=== PATIENT | male | born 1955 | race Caucasian/White ===

== ENCOUNTER 2016-07-09 09:45 | Inpatient (IN) | payer MEDICARE ==
[~2016-07-09] VITALS: Ht 177.8 cm; Wt 79.8 kg
[2016-07-09] MEDS ORDERED: ONDANSETRON 2MG/ML, 2ML IVPush ONE (11:30)
[2016-07-09] MEDS ORDERED: HYDROmorphone 1 MG/ML, 1ML IVPush PRN (11:30)
[2016-07-09] MEDS ORDERED: ONDANSETRON 2MG/ML, 2ML ONE (11:37)
[2016-07-09] MEDS ORDERED: HYDROmorphone 1 MG/ML, 1ML ONE (11:37)
[2016-07-09] MEDS ORDERED: SODIUM CHLORIDE FLUSH 10ML SYR IVF PRN (13:00)
[2016-07-09] MEDS ORDERED: OMNIPAQUE 350 MG/ML, 100ML BOTTLE ONE (13:00)
[2016-07-09 13:30] LABS: CYTOLOGY BODY FLUID RECD INTO PATHOLOGY; CYTOLOGY BODY FLUID SOURCE CEREBROSPINAL FLUID
[2016-07-09] MEDS ORDERED: PLEASE ENTER ALLERGIES MC SCH ×2 (13:30)
[2016-07-09] MEDS ORDERED: GADOBUTROL 7.5 MMOL/7.5 ML PFS ONE (13:50)
[2016-07-09 13:58] LABS: GLUCOSE, CSF 47 mg/dL (40-80)
[2016-07-09 14:06] LABS: ASPARTATE AMINO TRANSFERASE 8 U/L (15-37); BLOOD UREA NITROGEN 33 mg/dL (7-18)
[2016-07-09 14:16] LABS: HEMOGLOBIN 7.3 g/dL (13.7-18.0)
[2016-07-09 14:29] LABS: DIFF TOTAL CELLS COUNTED 100 CELL DIFF
[2016-07-09 14:34] LABS: ANISOCYTOSIS 1+; HYPOCHROMIA 1+; POIKILOCYTOSIS 1+; SPHEROCYTES 1+; VERIFY COUNTS? YES
[2016-07-09 15:31] VITALS: BP 117/73
[2016-07-09] MEDS ORDERED: HYDROcodone/APAP 10/325 MG TABLET PO PRN (18:30)
[2016-07-09] MEDS ORDERED: ONDANSETRON 2MG/ML, 2ML IVPush PRN (19:30)
[2016-07-09] MEDS ORDERED: LORazepam 1MG TABLET PO PRN (19:30)
[2016-07-09] MEDS ORDERED: PREZISTA 800 MG HOMEMEDPO SCH (21:00)
[2016-07-09] MEDS ORDERED: RITONAVIR 100 MG TABLET PO SCH (21:00)
[2016-07-09] MEDS ORDERED: EMTRICITABINE/TENOFOVIR 200 MG/300 MG TABLET PO SCH (21:00)
[2016-07-09 21:05] VITALS: BP 98/61
[2016-07-09] MEDS ORDERED: MORPHINE SULFATE 4 MG/ML, 1ML IVPush PRN (22:00)
[2016-07-10] VITALS (7 sets, daily range): BP systolic 96–112; BP diastolic 56–75
[2016-07-10] MEDS ORDERED: morphine SULFATE 10 MG/ML, 1ML IVPush PRN (03:00)
[2016-07-10] MEDS: MORPHINE SULFATE 4 MG/ML, 1ML IVPush PRN ×5 (03:00→19:20)
[2016-07-10 04:42] LABS: HEMOGLOBIN 6.4 g/dL (13.7-18.0)
[2016-07-10 04:45] LABS: BLOOD UREA NITROGEN 22 mg/dL (7-18)
[2016-07-10] MEDS ORDERED: DIPHENHYDRAMINE 50 MG/ML, 1ML IVPush PRN (05:30)
[2016-07-10] MEDS: ACYCLOVIR 400 MG TABLET PO SCH (07:49)
[2016-07-10] MEDS: PANTOPROZOLE 40MG TABLET PO SCH ×2 (07:49→17:20)
[2016-07-10] MEDS: HYDROcodone/APAP 10/325 MG TABLET PO PRN ×2 (09:28→22:59)
[2016-07-10] MEDS: FLUCONAZOLE 200 MG TABLET PO SCH (12:22)
[2016-07-10] MEDS: PREZISTA 800 MG HOMEMEDPO SCH (21:00)
[2016-07-10] MEDS: EMTRICITABINE/TENOFOVIR 200 MG/300 MG TABLET PO SCH (21:17)
[2016-07-10] MEDS: DEXAMETHASONE 4 MG/ML, 5ML IVPush PRN (21:17)
[2016-07-10] MEDS: RITONAVIR 100 MG TABLET PO SCH (21:17)
[2016-07-11] VITALS (13 sets, daily range): BP systolic 102–122; BP diastolic 62–85
[2016-07-11] MEDS: HYDROcodone/APAP 10/325 MG TABLET PO PRN ×3 (01:51→21:49)
[2016-07-11 04:47] LABS: HEMOGLOBIN 9.2 g/dL (13.7-18.0)
[2016-07-11 04:51] LABS: BLOOD UREA NITROGEN 20 mg/dL (7-18)
[2016-07-11] MEDS: MORPHINE SULFATE 4 MG/ML, 1ML IVPush PRN ×2 (04:54→15:10)
[2016-07-11] MEDS: DEXAMETHASONE 4 MG/ML, 5ML IVPush PRN (04:54)
[2016-07-11] MEDS ORDERED: METHYLNALTREXONE 12 MG/0.6 ML SQ ONE (07:30)
[2016-07-11] MEDS ORDERED: DEXAMETHASONE 4 MG/ML, 5ML IVPB SCH (08:00)
[2016-07-11] MEDS: PANTOPROZOLE 40MG TABLET PO SCH ×2 (09:06→17:59)
[2016-07-11] MEDS: ACYCLOVIR 400 MG TABLET PO SCH (09:07)
[2016-07-11] MEDS: FLUCONAZOLE 200 MG TABLET PO SCH (09:07)
[2016-07-11] MEDS: DEXAMETHASONE 40 MG in SODIUM CHLORIDE 0.9% 50 ML IV SCH (09:38)
[2016-07-11 10:04] LABS: HEMOGLOBIN 11.6 g/dL (13.7-18.0)
[2016-07-11 12:28] LABS: OCCBLD OBC PASS
[2016-07-11] MEDS ORDERED: HYDROmorphone 2MG TABLET PO PRN (15:30)
[2016-07-11] MEDS ORDERED: MORPHINE SULFATE 4 MG/ML, 1ML IVPush PRN (18:00)
[2016-07-11 19:12] LABS: HEMOGLOBIN 10.2 g/dL (13.7-18.0)
[2016-07-11] MEDS: EMTRICITABINE/TENOFOVIR 200 MG/300 MG TABLET PO SCH (20:39)
[2016-07-11] MEDS: RITONAVIR 100 MG TABLET PO SCH (20:39)
[2016-07-11] MEDS: PREZISTA 800 MG HOMEMEDPO SCH (20:44)
[2016-07-12] MEDS: HYDROcodone/APAP 10/325 MG TABLET PO PRN (01:40)
[2016-07-12 01:50] VITALS: BP 116/79
[2016-07-12 02:06] LABS: TOXOPLASMA GONDII IGG <3.0 IU/mL (0.0-7.1); TOXOPLASMA GONDII IGM <3.0 AU/mL (0.0-7.9)
[2016-07-12 04:47] LABS: HEMOGLOBIN 10.1 g/dL (13.7-18.0)
[2016-07-12 04:56] LABS: BLOOD UREA NITROGEN 24 mg/dL (7-18)
[2016-07-12 09:11] VITALS: BP 111/69
[2016-07-12] MEDS: PANTOPROZOLE 40MG TABLET PO SCH ×2 (09:24→17:00)
[2016-07-12] MEDS: ACYCLOVIR 400 MG TABLET PO SCH (09:25)
[2016-07-12] MEDS: FLUCONAZOLE 200 MG TABLET PO SCH (09:25)
[2016-07-12 10:07] LABS: BARTONELLA HENSELAE IGG Negative titer (Neg:<1:320); BARTONELLA HENSELAE IGM Negative titer (Neg:<1:100); BARTONELLA QUINTANA IGM Negative titer (Neg:<1:100)
[2016-07-12] MEDS: DEXAMETHASONE 40 MG in SODIUM CHLORIDE 0.9% 50 ML IV SCH (10:25)
[2016-07-12 12:06] LABS: CRYPTOCOCCUS ANTIGEN CSF Negative (Negative); MANDATED REFLEX TO CULTURE Not Indicated (.)
[2016-07-12 15:54] VITALS: BP 110/66
[2016-07-12 16:56] LABS: RHEUMATOID FACTOR SCREEN NEGATIVE (NEGATIVE)
[2016-07-12 18:44] LABS: RAPID PLASMA REAGIN REACTIVE (Nonreactive)
[2016-07-12 18:53] LABS: ANA SCREEN POSITIVE (Negative)
[2016-07-12 19:44] VITALS: BP 119/71
[2016-07-12] MEDS: EMTRICITABINE/TENOFOVIR 200 MG/300 MG TABLET PO SCH (20:41)
[2016-07-12] MEDS: RITONAVIR 100 MG TABLET PO SCH (20:41)
[2016-07-12] MEDS: PREZISTA 800 MG HOMEMEDPO SCH (20:41)
[2016-07-12] MEDS: OXYcodone IR 5MG TABLET PO PRN (20:41)
[2016-07-12 22:06] LABS: ABSOLUTE CD 4 HELPER 54 /uL (359-1519); HEMATOCRIT 28.9 % (37.5-51.0); HEMOGLOBIN 9.3 g/dL (12.6-17.7); IMMATURE GRANULOCYTES 1 % (.); MCH 27.5 pg (26.6-33.0); MCHC 32.2 g/dL (31.5-35.7); MCV 86 fL (79-97); MONOCYTES 1 % (.); NEUTROPHILS 88 % (.); PLATELETS 232 x10E3/uL (150-379); RBC 3.38 x10E6/uL (4.14-5.80); RDW 16.3 % (12.3-15.4)
[2016-07-13 03:21] VITALS: BP 119/73
[2016-07-13] MEDS: OXYcodone IR 5MG TABLET PO PRN ×2 (04:26→21:47)
[2016-07-13 04:47] LABS: HEMOGLOBIN 10.4 g/dL (13.7-18.0)
[2016-07-13 04:48] LABS: BLOOD UREA NITROGEN 26 mg/dL (7-18)
[2016-07-13] MEDS: FLUCONAZOLE 200 MG TABLET PO SCH (07:26)
[2016-07-13] MEDS: PANTOPROZOLE 40MG TABLET PO SCH ×2 (07:26→16:44)
[2016-07-13] MEDS: ACYCLOVIR 400 MG TABLET PO SCH (07:26)
[2016-07-13 08:30] VITALS: BP 115/71
[2016-07-13] MEDS: DEXAMETHASONE 40 MG in SODIUM CHLORIDE 0.9% 50 ML IV SCH (09:24)
[2016-07-13] MEDS ORDERED: ACYCLOVIR 400 MG TABLET PO PRN (12:00)
[2016-07-13 12:07] LABS: LYME DISEASE IGG/IGM TOTAL AB <0.91 ISR (0.00-0.90)
[2016-07-13 15:15] VITALS: BP 138/87
[2016-07-13] MEDS ORDERED: OMNIPAQUE 350 MG/ML, 100ML BOTTLE ONE (15:17)
[2016-07-13] MEDS: SODIUM CHLORIDE 0.9% 1,000 ML IV SCH (15:53)
[2016-07-13] MEDS ORDERED: DIPHENHYDRAMINE 50 MG/ML, 1ML IVPush ONE (20:30)
[2016-07-13] MEDS ORDERED: CEFTRIAXONE PMX 2GM/50ML 50 ML IV ONE (20:30)
[2016-07-13 20:32] VITALS: BP 114/82
[2016-07-13] MEDS ORDERED: DARUNAVIR 600 MG PO SCH (21:00)
[2016-07-13] MEDS: RITONAVIR 100 MG TABLET PO SCH (21:47)
[2016-07-13] MEDS: EMTRICITABINE/TENOFOVIR 200 MG/300 MG TABLET PO SCH (21:47)
[2016-07-14] MEDS: OXYcodone IR 5MG TABLET PO PRN ×4 (01:50→17:53)
[2016-07-14] MEDS: SODIUM CHLORIDE 0.9% 1,000 ML IV SCH ×3 (01:50→20:03)
[2016-07-14 03:28] VITALS: BP 113/75
[2016-07-14 05:19] LABS: HEMOGLOBIN 9.7 g/dL (13.7-18.0)
[2016-07-14 05:32] LABS: BLOOD UREA NITROGEN 26 mg/dL (7-18)
[2016-07-14 07:12] VITALS: BP 116/73
[2016-07-14] MEDS: SULFAMETH./TRIMETHOPRIM DS 800MG/160MG TABLET PO SCH (09:10)
[2016-07-14] MEDS: FLUCONAZOLE 200 MG TABLET PO SCH (09:11)
[2016-07-14] MEDS: PANTOPROZOLE 40MG TABLET PO SCH ×2 (09:11→17:53)
[2016-07-14 13:06] LABS: ALBUMIN CSF 33 mg/dL (11-48); ALBUMIN SERUM 2.9 g/dL (3.5-5.5); CSF IGG INDEX 0.8 (0.0-0.7); CSF/SERUM ALBUMIN INDEX 11 (0-8); IGG SERUM 775 mg/dL (700-1600); IGG SYNTHESIS RATE CSF 12.3 mg/day (-9.9 TO +3.3); IGG/ALBUMIN RATIO CSF 0.21 (0.00-0.25); MYELIN BASIC PROTEIN CSF 2.5 ng/mL (0.0-1.2)
[2016-07-14] MEDS: DIPHENHYDRAMINE 50 MG/ML, 1ML IVPush PRN (14:39)
[2016-07-14 15:09] VITALS: BP 128/84
[2016-07-14] MEDS: CEFTRIAXONE PMX 2GM/50ML 50 ML IV SCH (16:11)
[2016-07-14 19:50] VITALS: BP 113/69
[2016-07-14] MEDS: EMTRICITABINE/TENOFOVIR 200 MG/300 MG TABLET PO SCH (20:02)
[2016-07-14] MEDS: RITONAVIR 100 MG TABLET PO SCH (20:02)
[2016-07-15 01:20] VITALS: BP 138/88
[2016-07-15] MEDS: CEFTRIAXONE PMX 2GM/50ML 50 ML IV SCH ×2 (02:58→17:44)
[2016-07-15] MEDS: HYDROcodone/APAP 10/325 MG TABLET PO PRN (03:50)
[2016-07-15 05:05] LABS: ASPARTATE AMINO TRANSFERASE 11 U/L (15-37); BLOOD UREA NITROGEN 24 mg/dL (7-18)
[2016-07-15] MEDS: SODIUM CHLORIDE 0.9% 1,000 ML IV SCH (05:53)
[2016-07-15 06:53] VITALS: BP 112/70
[2016-07-15] MEDS: SULFAMETH./TRIMETHOPRIM DS 800MG/160MG TABLET PO SCH (08:11)
[2016-07-15] MEDS: FLUCONAZOLE 200 MG TABLET PO SCH (08:12)
[2016-07-15] MEDS: PANTOPROZOLE 40MG TABLET PO SCH ×2 (08:12→17:44)
[2016-07-15] MEDS: OXYcodone IR 5MG TABLET PO PRN ×3 (10:31→23:58)
[2016-07-15 11:11] LABS: GLUCOSE, CSF 64 mg/dL (40-80)
[2016-07-15 13:49] VITALS: BP 136/88
[2016-07-15] MEDS ORDERED: DEXTROSE 5% IV ONE ×3 (15:00→15:40)
[2016-07-15] MEDS ORDERED: PENICILLIN GK IV ONE ×3 (15:00→15:40)
[2016-07-15] MEDS ORDERED: HYDROCORTISONE 100 MG INJ. IV PRN (15:00)
[2016-07-15] MEDS ORDERED: DIPHENHYDRAMINE 50 MG/ML, 1ML IVPush PRN (15:00)
[2016-07-15] MEDS ORDERED: EPINEPHRINE SYRINGE 0.1 MG/ML, 10ML IVPush PRN (15:00)
[2016-07-15 18:26] VITALS: BP 125/73
[2016-07-15] MEDS: EMTRICITABINE/TENOFOVIR 200 MG/300 MG TABLET PO SCH (20:31)
[2016-07-15] MEDS: RITONAVIR 100 MG TABLET PO SCH (21:00)
[2016-07-15 21:05] VITALS: BP 117/72
[2016-07-15] MEDS: PENICILLIN GK 4,000,000 UNITS in DEXTROSE 5% 100 ML IV SCH (23:58)
[2016-07-16] MEDS: CEFTRIAXONE PMX 2GM/50ML 50 ML IV SCH (03:01)
[2016-07-16] MEDS: PENICILLIN GK 4,000,000 UNITS in DEXTROSE 5% 100 ML IV SCH ×5 (03:58→23:03)
[2016-07-16 04:03] VITALS: BP 117/71
[2016-07-16 05:19] LABS: BLOOD UREA NITROGEN 27 mg/dL (7-18)
[2016-07-16 05:39] LABS: HEMOGLOBIN 9.4 g/dL (13.7-18.0)
[2016-07-16 06:07] LABS: LOG10 CMV QN DNA BLOOD 2.356 (.)
[2016-07-16 06:10] LABS: DIFF TOTAL CELLS COUNTED 100 CELL DIFF
[2016-07-16 06:13] LABS: ANISOCYTOSIS 1+; VERIFY COUNTS? YES
[2016-07-16 06:14] LABS: POLYCHROMASIA 1+
[2016-07-16 06:46] VITALS: BP 114/70
[2016-07-16] MEDS: FLUCONAZOLE 200 MG TABLET PO SCH (08:24)
[2016-07-16] MEDS: SULFAMETH./TRIMETHOPRIM DS 800MG/160MG TABLET PO SCH (08:24)
[2016-07-16] MEDS: PANTOPROZOLE 40MG TABLET PO SCH ×2 (08:24→18:09)
[2016-07-16 12:52] VITALS: BP 145/84
[2016-07-16 13:04] VITALS: BP 97/64
[2016-07-16] MEDS: DIPHENHYDRAMINE 50 MG/ML, 1ML IVPush PRN (13:16)
[2016-07-16 14:42] VITALS: BP 122/77
[2016-07-16] MEDS: OXYcodone IR 5MG TABLET PO PRN (18:12)
[2016-07-16 19:26] VITALS: BP 123/76
[2016-07-16] MEDS: RITONAVIR 100 MG TABLET PO SCH (21:00)
[2016-07-16] MEDS: EMTRICITABINE/TENOFOVIR 200 MG/300 MG TABLET PO SCH (22:05)
[2016-07-17 01:44] VITALS: BP 114/73
[2016-07-17] MEDS: PENICILLIN GK 4,000,000 UNITS in DEXTROSE 5% 100 ML IV SCH ×5 (04:11→20:43)
[2016-07-17 05:03] LABS: BLOOD UREA NITROGEN 24 mg/dL (7-18)
[2016-07-17 05:08] LABS: HEMOGLOBIN 10.1 g/dL (13.7-18.0)
[2016-07-17 05:37] LABS: DIFF TOTAL CELLS COUNTED 100 CELL DIFF
[2016-07-17 06:10] LABS: ANISOCYTOSIS 1+; POLYCHROMASIA 1+; VERIFY COUNTS? YES
[2016-07-17 08:17] VITALS: BP 129/85
[2016-07-17] MEDS: SULFAMETH./TRIMETHOPRIM DS 800MG/160MG TABLET PO SCH (08:34)
[2016-07-17] MEDS: PANTOPROZOLE 40MG TABLET PO SCH ×2 (08:35→16:56)
[2016-07-17] MEDS: FLUCONAZOLE 200 MG TABLET PO SCH (08:35)
[2016-07-17] MEDS: OXYcodone IR 5MG TABLET PO PRN ×2 (11:32→19:25)
[2016-07-17 12:24] LABS: HEMOGLOBIN 10.4 g/dL (13.7-18.0)
[2016-07-17 12:32] LABS: BLOOD UREA NITROGEN 19 mg/dL (7-18); C-REACTIVE PROTEIN, QUANT 0.06 mg/dL (0.02-0.49)
[2016-07-17 12:35] LABS: ASPARTATE AMINO TRANSFERASE 11 U/L (15-37)
[2016-07-17 13:03] LABS: DIFF TOTAL CELLS COUNTED 100 CELL DIFF
[2016-07-17 13:12] LABS: ANISOCYTOSIS 1+; VERIFY COUNTS? YES
[2016-07-17 13:17] VITALS: BP 122/75
[2016-07-17 19:09] VITALS: BP 117/72
[2016-07-17] MEDS: RITONAVIR 100 MG TABLET PO SCH (20:44)
[2016-07-17] MEDS: EMTRICITABINE/TENOFOVIR 200 MG/300 MG TABLET PO SCH (20:45)
[2016-07-18] MEDS: PENICILLIN GK 4,000,000 UNITS in DEXTROSE 5% 100 ML IV SCH ×7 (00:05→22:19)
[2016-07-18 01:41] VITALS: BP 112/70
[2016-07-18 05:19] LABS: ASPARTATE AMINO TRANSFERASE 12 U/L (15-37); BLOOD UREA NITROGEN 19 mg/dL (7-18); C-REACTIVE PROTEIN, QUANT 0.14 mg/dL (0.02-0.49); HEMOGLOBIN 10.8 g/dL (13.7-18.0)
[2016-07-18 06:01] LABS: DIFF TOTAL CELLS COUNTED 100 CELL DIFF
[2016-07-18 06:04] LABS: ANISOCYTOSIS 1+; VERIFY COUNTS? YES
[2016-07-18 06:08] LABS: POLYCHROMASIA 1+
[2016-07-18] MEDS: OXYcodone IR 5MG TABLET PO PRN ×2 (06:39→12:37)
[2016-07-18 07:45] VITALS: BP 116/74
[2016-07-18] MEDS: SULFAMETH./TRIMETHOPRIM DS 800MG/160MG TABLET PO SCH (09:11)
[2016-07-18] MEDS: PANTOPROZOLE 40MG TABLET PO SCH ×2 (09:11→17:24)
[2016-07-18] MEDS: FLUCONAZOLE 200 MG TABLET PO SCH (09:12)
[2016-07-18 13:58] VITALS: BP 109/71
[2016-07-18 19:19] VITALS: BP 123/78
[2016-07-18] MEDS: RITONAVIR 100 MG TABLET PO SCH (22:20)
[2016-07-18] MEDS: EMTRICITABINE/TENOFOVIR 200 MG/300 MG TABLET PO SCH (22:20)
[2016-07-19] MEDS: PENICILLIN GK 4,000,000 UNITS in DEXTROSE 5% 100 ML IV SCH ×6 (00:47→20:05)
[2016-07-19 02:15] VITALS: BP 132/84
[2016-07-19] MEDS: OXYcodone IR 5MG TABLET PO PRN (04:46)
[2016-07-19 05:36] LABS: BLOOD UREA NITROGEN 17 mg/dL (7-18)
[2016-07-19 05:46] LABS: HEMOGLOBIN 10.8 g/dL (13.7-18.0)
[2016-07-19 07:35] LABS: DIFF TOTAL CELLS COUNTED 100 CELL DIFF
[2016-07-19 07:36] LABS: VERIFY COUNTS? YES
[2016-07-19 07:38] LABS: ANISOCYTOSIS 1+
[2016-07-19 07:45] VITALS: BP 123/90
[2016-07-19] MEDS: FLUCONAZOLE 200 MG TABLET PO SCH (08:20)
[2016-07-19] MEDS: VALGANCICLOVIR 450MG TABLET PO SCH (08:20)
[2016-07-19] MEDS: SULFAMETH./TRIMETHOPRIM DS 800MG/160MG TABLET PO SCH (08:20)
[2016-07-19] MEDS: PANTOPROZOLE 40MG TABLET PO SCH ×2 (08:21→20:05)
[2016-07-19] MEDS: DARUNAVIR 800 MG TABLET PO SCH (10:16)
[2016-07-19 13:09] VITALS: BP 143/83
[2016-07-19 19:56] VITALS: BP 135/81
[2016-07-19] MEDS: RITONAVIR 100 MG TABLET PO SCH (20:07)
[2016-07-19] MEDS: EMTRICITABINE/TENOFOVIR 200 MG/300 MG TABLET PO SCH (20:07)
[2016-07-20] MEDS: PENICILLIN GK 4,000,000 UNITS in DEXTROSE 5% 100 ML IV SCH ×3 (00:53→07:37)
[2016-07-20 04:40] VITALS: BP 127/79
[2016-07-20] MEDS ORDERED: FLUC200T4 PO ×2 (06:03→08:18)
[2016-07-20] MEDS: OXYcodone IR 5MG TABLET PO PRN (06:23)
[2016-07-20] MEDS: DARUNAVIR 800 MG TABLET PO SCH (07:41)
[2016-07-20] MEDS: SULFAMETH./TRIMETHOPRIM DS 800MG/160MG TABLET PO SCH (07:42)
[2016-07-20] MEDS: PANTOPROZOLE 40MG TABLET PO SCH (07:42)
[2016-07-20] MEDS: FLUCONAZOLE 200 MG TABLET PO SCH (07:42)
[2016-07-20] MEDS: VALGANCICLOVIR 450MG TABLET PO SCH (07:42)
[2016-07-20] MEDS ORDERED: [UNRECOGNIZED DRUG - CODE] IV (08:16)
[2016-07-20] MEDS ORDERED: VALG450T4 PO (08:21)
[2016-07-20] MEDS ORDERED: DARU800T PO (08:22)
[2016-07-20] MEDS ORDERED: RITO100C PO (08:23)
[2016-07-20] MEDS ORDERED: EMTR1TAB12 PO (08:23)
[2016-07-20] MEDS ORDERED: SULF1TAB3 PO (08:26)
[2016-07-20] MEDS ORDERED: PRED50TA PO (08:31)
[2016-07-20] MEDS ORDERED: PRED10TA PO (08:33)
[2016-07-20] MEDS ORDERED: PANT40TA3 PO (08:41)
[2016-07-20] MEDS ORDERED: ACYC-114 PO (08:43)
[2016-07-20] MEDS ORDERED: OXYC10TA6 PO (08:44)
[2016-07-20] MEDS ORDERED: HYDR-879 PO (08:45)
[2016-07-20] MEDS ORDERED: DIPH25CA61 PO (08:45)
[2016-07-20] MEDS ORDERED: LORA1TAB PO (08:46)
[2016-07-20 09:43] VITALS: BP 119/84
[2016-07-21 18:27] LABS: SJOGREN'S SS-A AB <0.2 AI (0.0-0.9)
== END 2016-07-20 10:55 | DRG 56 ==
LOC: ED 14:42 → EDIP 14:50 → 3NW 15:22
PROVIDERS: ADMIT Internal Medicine; ATTEND Internal Medicine
PROC: 30233N1 Transfusion of Nonautologous Red Blood Cells into Peripheral Vein, Percutaneous Approach (ICD-10-PCS; 2016-07-10)
PROC: 009U3ZX Drainage of Spinal Canal, Percutaneous Approach, Diagnostic (ICD-10-PCS; principal; 2016-07-15)
PROC: B01B1ZZ Fluoroscopy of Spinal Cord using Low Osmolar Contrast (ICD-10-PCS; 2016-07-15)
DX: A52.3 Neurosyphilis, unspecified (principal); B20 Human immunodeficiency virus [HIV] disease; H47.10 Unspecified papilledema; H46.8 Other optic neuritis; B37.0 Candidal stomatitis; C15.5 Malignant neoplasm of lower third of esophagus; K92.2 Gastrointestinal hemorrhage, unspecified; E44.0 Moderate protein-calorie malnutrition; H46.9 Unspecified optic neuritis; B25.9 Cytomegaloviral disease, unspecified; E87.1 Hypo-osmolality and hyponatremia; B25.8 Other cytomegaloviral diseases; H54.0 Blindness, both eyes; D63.8 Anemia in other chronic diseases classified elsewhere; B00.1 Herpesviral vesicular dermatitis; T45.1X5A Adverse effect of antineoplastic and immunosuppressive drugs, initial encounter; B97.89 Other viral agents as the cause of diseases classified elsewhere; F41.9 Anxiety disorder, unspecified; G62.9 Polyneuropathy, unspecified; I10 Essential (primary) hypertension; K21.9 Gastro-esophageal reflux disease without esophagitis; T38.0X5A Adverse effect of glucocorticoids and synthetic analogues, initial encounter; Z80.8 Family history of malignant neoplasm of other organs or systems; Z82.49 Family history of ischemic heart disease and other diseases of the circulatory system; Z88.0 Allergy status to penicillin; Z87.891 Personal history of nicotine dependence; Z79.899 Other long term (current) drug therapy; Z68.25 Body mass index [BMI] 25.0-25.9, adult
CPT/HCPCS: 36415; 62270; 70543; 70553; 71260; 74177; 78278; 80048; 80053; 82040; 82042; 82164; 82272; 82607; 82728; 82746; 82784; 82945; 83520; 83540; 83550; 83735; 83873; 84157; 85025; 85549; 85610; 85651; 85730; 86038; 86039; 86140; 86235; 86361; 86430; 86480; 86592; 86611; 86617; 86618; 86645; 86695; 86696; 86762; 86777; 86778; 86780; 86850; 86900; 86923; 87070; 87102; 87116; 87205; 87206; 87471; 87476; 87497; 87536; 87899; 88108; 89051; 96374; 96375; A9585; J0696; J1100; J1170; J2405; J2540; Q9967; A9560; C9898; J1200; J7030; J7512; P9016

== ENCOUNTER → 2016-11-10 | Outpatient (CLI) | payer MEDICARE ==
[~2016-11-10] MED LIST: ACYC-114 PO; DARU800T PO; DIPH25CA61 PO; EMTR1TAB12 PO; FLUC200T4 PO; HYDR-879 PO; LORA1TAB PO; OXYC10TA6 PO; PANT40TA3 PO; PRED10TA PO; PRED50TA PO; RITO100C PO; SULF1TAB3 PO; VALG450T4 PO; [UNRECOGNIZED DRUG - CODE] IV
== END | disposition home or self-care (01) ==
LOC: STAR 11:08
PROVIDERS: ATTEND Surgery
DX: Z02.9 Encounter for administrative examinations, unspecified (principal)

== ENCOUNTER 2016-11-15 11:19 | Day surgery (SDC) | payer MEDICARE ==
[~2016-11-15] VITALS: Ht 177.8 cm; Wt 74.5 kg
[2016-11-15] MEDS ORDERED: LACTATED RINGERS 1,000 ML IV SCH (12:22)
[2016-11-15] MEDS ORDERED: OMEP-110 PO (12:26)
[2016-11-15 12:27] VITALS: BP 147/92
[2016-11-15] MEDS ORDERED: PROPOFOL 10 MG/ML, 50ML ONE (13:27)
[2016-11-15] MEDS ORDERED: ONDANSETRON 2MG/ML, 2ML ONE (13:27)
[2016-11-15] MEDS ORDERED: DEXAMETHASONE 4 MG/ML, 1ML ONE (13:27)
[2016-11-15] MEDS ORDERED: HYDROmorphone 1 MG/ML, 1ML IV PRN (13:30)
[2016-11-15] MEDS ORDERED: OXYcodone 5 MG/5 ML ORAL.SOL UDC PO PRN (13:30)
[2016-11-15] MEDS ORDERED: LABETALOL 5MG/ML, 20ML IV PRN (13:30)
[2016-11-15] MEDS ORDERED: FENTANYL PF 100 MCG/2ML IV PRN (13:30)
[2016-11-15] MEDS ORDERED: hydrALAzine 20 MG/ML, 1ML IV PRN (13:30)
[2016-11-15] MEDS ORDERED: ONDANSETRON 2MG/ML, 2ML IVPush PRN (13:30)
[2016-11-15] MEDS ORDERED: MIDAZOLAM 1 MG/ML, 2ML IV PRN (13:30)
[2016-11-15] MEDS ORDERED: ALBUTEROL SULFATE 2.5 MG/3 ML NPPB PRN (13:30)
[2016-11-15] MEDS ORDERED: PROMETHAZINE 25 MG/ML, 1ML IV PRN (13:30)
[2016-11-15] MEDS ORDERED: MEPERIDINE/PF 25MG/0.5ML IVPush PRN (13:30)
== END 2016-11-15 15:35 ==
LOC: OUT 11:19
PROVIDERS: ATTEND Internal Medicine Geriatric Medicine
DX: C15.9 Malignant neoplasm of esophagus, unspecified (principal); E78.00 Pure hypercholesterolemia, unspecified; Z72.0 Tobacco use
CPT/HCPCS: 43238; 43239; 88305; J1100; J2405; J2704; J7120

== ENCOUNTER → 2017-03-06 | Outpatient (CLI) | payer MEDICARE ==
[~2017-03-06] MED LIST changes: -DARU800T PO; +DARU800T2 PO; -EMTR1TAB12 PO; +EMTR1TAB8 PO; +HYDR-3307 PO; +HYDR-3342 PO; +OMEP-110 PO; +ONDA8TAB9 PO; +SULF-169 PO; -SULF1TAB3 PO
== END | disposition home or self-care (01) ==
LOC: RAD 12:25
PROVIDERS: ATTEND Thoracic Surgery (Cardiothoracic Vascular Surgery)
DX: J47.9 Bronchiectasis, uncomplicated (principal); J98.11 Atelectasis; S22.079A Unspecified fracture of T9-T10 vertebra, initial encounter for closed fracture; C15.5 Malignant neoplasm of lower third of esophagus; K44.9 Diaphragmatic hernia without obstruction or gangrene; X58.XXXA Exposure to other specified factors, initial encounter; Y93.89 Activity, other specified; Y92.89 Other specified places as the place of occurrence of the external cause; Y99.8 Other external cause status
CPT/HCPCS: 71260; J1642

== ENCOUNTER 2017-03-15 07:47 | Inpatient (IN) | payer MEDICARE ==
[~2017-03-15] VITALS: Ht 177.8 cm; Wt 67.4 kg
[~2017-03-15 07:47] MED LIST changes: +BUPIVACAINE/PF 0.5% ONE
[2017-03-15] MEDS ORDERED: LACTATED RINGERS 1,000 ML IV SCH (08:24)
[2017-03-15] MEDS ORDERED: LIDOCAINE 1%, 2ML ONE (08:29)
[2017-03-15] MEDS ORDERED: LIDOCAINE 1%, 2ML SQ PRN (08:30)
[2017-03-15] MEDS ORDERED: MIDAZOLAM 1 MG/ML, 2ML ONE (09:28)
[2017-03-15] MEDS ORDERED: FENTANYL PF 100 MCG/2ML ONE ×4 (09:28→14:09)
[2017-03-15] MEDS ORDERED: PROPOFOL 10 MG/ML, 20ML ONE (09:30)
[2017-03-15] MEDS ORDERED: ROCURONIUM 10 MG/ML,10ML ONE ×2 (09:30→16:20)
[2017-03-15] MEDS ORDERED: CEFAZOLIN 1,000 MG ONE ×4 (09:31→13:12)
[2017-03-15] MEDS ORDERED: ACETAMINOPHEN 325 MG TABLET PO PRN (10:30)
[2017-03-15] MEDS ORDERED: LABETALOL 5MG/ML, 20ML IV PRN (10:30)
[2017-03-15] MEDS ORDERED: ONDANSETRON 2MG/ML, 2ML IVPush PRN ×2 (10:30→15:00)
[2017-03-15] MEDS ORDERED: MEPERIDINE/PF 25MG/0.5ML IVPush PRN (10:30)
[2017-03-15] MEDS ORDERED: FENTANYL PF 100 MCG/2ML IV PRN (10:30)
[2017-03-15] MEDS ORDERED: PROMETHAZINE 25 MG/ML, 1ML IV PRN (10:30)
[2017-03-15] MEDS ORDERED: hydrALAzine 20 MG/ML, 1ML IV PRN (10:30)
[2017-03-15] MEDS ORDERED: OXYcodone 5 MG/5 ML ORAL.SOL UDC PO PRN (10:30)
[2017-03-15] MEDS ORDERED: BUPIVACAINE/PF-EPI 0.5% 1:200K INFIL ONE (10:56)
[2017-03-15] MEDS ORDERED: ONDANSETRON 2MG/ML, 2ML ONE (11:09)
[2017-03-15] MEDS ORDERED: DEXAMETHASONE 4 MG/ML, 1ML ONE ×2 (11:10)
[2017-03-15] MEDS ORDERED: NEOSTIGMINE 1 MG/ML, 10ML ONE (11:22)
[2017-03-15] MEDS ORDERED: GLYCOPYRROLATE 0.4 MG/2 ML, 2ML ONE (11:22)
[2017-03-15] MEDS ORDERED: PHENYLEPHRINE 10 MG/ML ONE (11:44)
[2017-03-15] MEDS ORDERED: BUPIVACAINE/PF 0.5% ONE (14:39)
[2017-03-15] MEDS ORDERED: HYDROmorphone 2 MG/ML, 1ML ONE (14:52)
[2017-03-15] MEDS: HYDROmorphone 1 MG/ML, 1ML IV PRN ×4 (14:53→15:31)
[2017-03-15] MEDS ORDERED: ENALAPRILAT 1.25 MG/ML, 2ML IVPush PRN (15:00)
[2017-03-15] MEDS ORDERED: DIPHENHYDRAMINE 50 MG/ML, 1ML IVPush PRN (15:00)
[2017-03-15] MEDS: CEFOTETAN PMX 1GM/50ML 50 ML IV SCH (17:34)
[2017-03-15 19:34] VITALS: BP 103/67
[2017-03-15] MEDS: KETOROLAC 30 MG/1 ML IVPush PRN (20:41)
[2017-03-15] MEDS: HYDROcodone/APAP 7.5-325MG/15ML UDC JT PRN (20:42)
[2017-03-15] MEDS: ACYCLOVIR 400 MG TABLET PO SCH (21:00)
[2017-03-15] MEDS: DARUNAVIR 800 MG TABLET PO SCH (21:00)
[2017-03-15] MEDS: RITONAVIR 100 MG TABLET PO SCH (21:00)
[2017-03-15] MEDS: EMTRICITABINE/TENOFOVIR 200 MG/300 MG TABLET PO SCH (23:09)
[2017-03-15] MEDS: LACTATED RINGERS 1,000 ML IV SCH (23:15)
[2017-03-16] VITALS (7 sets, daily range): BP systolic 84–104; BP diastolic 52–68
[2017-03-16] MEDS: HYDROcodone/APAP 7.5-325MG/15ML UDC JT PRN (01:15)
[2017-03-16 04:48] LABS: HEMATOCRIT 33.3 % (39.2-51.8); HEMOGLOBIN 11.1 g/dL (13.7-18.0); WHITE BLOOD COUNT 14.6 x10^3/uL (3.4-10)
[2017-03-16] MEDS: LACTATED RINGERS 1,000 ML IV SCH ×3 (06:15→22:27)
[2017-03-16] MEDS: CEFOTETAN PMX 1GM/50ML 50 ML IV SCH ×2 (06:15→12:35)
[2017-03-16] MEDS: KETOROLAC 30 MG/1 ML IVPush PRN (06:51)
[2017-03-16] MEDS: ACYCLOVIR 400 MG TABLET PO SCH ×2 (08:16→20:56)
[2017-03-16] MEDS: ENOXAPARIN 40 MG/0.4 ML SQ SCH (09:14)
[2017-03-16] MEDS: PANTOPRAZOLE 40 MG IV IVPush SCH (09:14)
[2017-03-16] MEDS: RITONAVIR 100 MG TABLET PO SCH (20:56)
[2017-03-16] MEDS: DARUNAVIR 800 MG TABLET PO SCH (20:56)
[2017-03-16] MEDS: EMTRICITABINE/TENOFOVIR 200 MG/300 MG TABLET PO SCH (20:56)
[2017-03-17] MEDS: CEFOTETAN PMX 1GM/50ML 50 ML IV SCH ×2 (00:20→13:43)
[2017-03-17 03:24] VITALS: BP 100/68
[2017-03-17 07:23] VITALS: BP 105/66
[2017-03-17] MEDS: ACYCLOVIR 400 MG TABLET PO SCH ×2 (07:27→21:00)
[2017-03-17] MEDS: ENOXAPARIN 40 MG/0.4 ML SQ SCH (09:04)
[2017-03-17] MEDS: PANTOPRAZOLE 40 MG IV IVPush SCH (09:04)
[2017-03-17] MEDS: LACTATED RINGERS 1,000 ML IV SCH ×2 (09:04→21:22)
[2017-03-17 13:47] VITALS: BP 116/82
[2017-03-17] MEDS: KETOROLAC 30 MG/1 ML IVPush PRN (17:55)
[2017-03-17] MEDS: EMTRICITABINE/TENOFOVIR 200 MG/300 MG TABLET PO SCH (21:00)
[2017-03-17] MEDS: RITONAVIR 100 MG TABLET PO SCH (21:00)
[2017-03-17] MEDS: DARUNAVIR 800 MG TABLET PO SCH (21:00)
[2017-03-17 21:25] VITALS: BP 113/68
[2017-03-18] MEDS: CEFOTETAN PMX 1GM/50ML 50 ML IV SCH (01:42)
[2017-03-18 02:39] VITALS: BP 118/78
[2017-03-18 07:02] VITALS: BP 125/92
[2017-03-18] MEDS: PANTOPRAZOLE 40 MG IV IVPush SCH (08:17)
[2017-03-18] MEDS: ACYCLOVIR 400 MG TABLET PO SCH ×2 (08:17→20:48)
[2017-03-18] MEDS: ENOXAPARIN 40 MG/0.4 ML SQ SCH (08:18)
[2017-03-18] MEDS: HYDROcodone/APAP 7.5-325MG/15ML UDC JT PRN ×3 (10:48→20:00)
[2017-03-18 14:30] VITALS: BP 123/91
[2017-03-18] MEDS: KETOROLAC 30 MG/1 ML IVPush PRN ×2 (17:36→23:15)
[2017-03-18 19:46] VITALS: BP 131/94
[2017-03-18] MEDS: DARUNAVIR 800 MG TABLET PO SCH (19:59)
[2017-03-18] MEDS: RITONAVIR 100 MG TABLET PO SCH (19:59)
[2017-03-18] MEDS: EMTRICITABINE/TENOFOVIR 200 MG/300 MG TABLET PO SCH (19:59)
[2017-03-19 01:30] VITALS: BP 124/96
[2017-03-19] MEDS: KETOROLAC 30 MG/1 ML IVPush PRN ×3 (05:46→18:20)
[2017-03-19 08:29] VITALS: BP 128/90
[2017-03-19] MEDS: ACYCLOVIR 400 MG TABLET PO SCH ×2 (08:49→21:00)
[2017-03-19] MEDS: PANTOPRAZOLE 40 MG IV IVPush SCH (08:54)
[2017-03-19] MEDS: ENOXAPARIN 40 MG/0.4 ML SQ SCH (08:54)
[2017-03-19 14:39] VITALS: BP 124/88
[2017-03-19 15:28] VITALS: BP 138/93
[2017-03-19] MEDS: HYDROcodone/APAP 7.5-325MG/15ML UDC JT PRN ×2 (15:55→21:20)
[2017-03-19 19:18] VITALS: BP 123/87
[2017-03-19] MEDS: EMTRICITABINE/TENOFOVIR 200 MG/300 MG TABLET PO SCH (21:10)
[2017-03-19] MEDS: DARUNAVIR 800 MG TABLET PO SCH (21:10)
[2017-03-19] MEDS: RITONAVIR 100 MG TABLET PO SCH (21:10)
[2017-03-19] MEDS: LORazepam 2 MG/ML, 1ML IVPush PRN (22:18)
[2017-03-20 01:48] VITALS: BP 130/92
[2017-03-20] MEDS: HYDROcodone/APAP 7.5-325MG/15ML UDC JT PRN ×5 (05:15→21:50)
[2017-03-20 07:45] VITALS: BP 109/68
[2017-03-20] MEDS: ENOXAPARIN 40 MG/0.4 ML SQ SCH (08:41)
[2017-03-20] MEDS: PANTOPRAZOLE 40 MG IV IVPush SCH (08:41)
[2017-03-20] MEDS: ACYCLOVIR 400 MG TABLET PO SCH ×2 (08:41→20:14)
[2017-03-20] MEDS ORDERED: HYDR-3241 JT (10:35)
[2017-03-20] MEDS: LORazepam 2 MG/ML, 1ML IVPush PRN ×2 (13:17→22:55)
[2017-03-20 13:31] VITALS: BP 116/78
[2017-03-20 20:03] VITALS: BP 117/70
[2017-03-20] MEDS: EMTRICITABINE/TENOFOVIR 200 MG/300 MG TABLET PO SCH (20:28)
[2017-03-20] MEDS: RITONAVIR 100 MG TABLET PO SCH (20:28)
[2017-03-20] MEDS: DARUNAVIR 800 MG TABLET PO SCH (20:28)
[2017-03-21 03:10] VITALS: BP 125/80
[2017-03-21] MEDS: HYDROcodone/APAP 7.5-325MG/15ML UDC JT PRN ×4 (04:03→23:59)
[2017-03-21 07:03] VITALS: BP 106/73
[2017-03-21] MEDS: ENOXAPARIN 40 MG/0.4 ML SQ SCH (08:46)
[2017-03-21] MEDS: PANTOPRAZOLE 40 MG IV IVPush SCH (08:46)
[2017-03-21] MEDS: ACYCLOVIR 400 MG TABLET PO SCH ×2 (09:00→21:34)
[2017-03-21] MEDS: LORazepam 2 MG/ML, 1ML IVPush PRN ×2 (14:46→23:50)
[2017-03-21 19:48] VITALS: BP 109/80
[2017-03-21] MEDS: EMTRICITABINE/TENOFOVIR 200 MG/300 MG TABLET PO SCH (21:34)
[2017-03-21] MEDS: RITONAVIR 100 MG TABLET PO SCH (21:34)
[2017-03-21] MEDS: DARUNAVIR 800 MG TABLET PO SCH (21:34)
[2017-03-22 03:22] VITALS: BP 122/88
[2017-03-22] MEDS: HYDROcodone/APAP 7.5-325MG/15ML UDC JT PRN ×2 (06:08→10:24)
[2017-03-22 07:37] VITALS: BP 110/72
[2017-03-22] MEDS: ACYCLOVIR 400 MG TABLET PO SCH (09:00)
[2017-03-22] MEDS: ENOXAPARIN 40 MG/0.4 ML SQ SCH (09:18)
[2017-03-22] MEDS: PANTOPRAZOLE 40 MG IV IVPush SCH (09:18)
[2017-03-22 12:04] VITALS: BP 100/70
== END 2017-03-22 12:15 | disposition home or self-care (01) | DRG 326 ==
LOC: ORIP 07:47 → 4NOR 16:11
PROVIDERS: ADMIT Thoracic Surgery (Cardiothoracic Vascular Surgery); ATTEND Thoracic Surgery (Cardiothoracic Vascular Surgery)
PROC: 0DB50ZZ Excision of Esophagus, Open Approach (ICD-10-PCS; 2017-03-15)
PROC: 0DHA3UZ Insertion of Feeding Device into Jejunum, Percutaneous Approach (ICD-10-PCS; principal; 2017-03-15 10:30)
DX: C15.5 Malignant neoplasm of lower third of esophagus (principal); E43 Unspecified severe protein-calorie malnutrition; K44.9 Diaphragmatic hernia without obstruction or gangrene; Z92.3 Personal history of irradiation; Z68.21 Body mass index [BMI] 21.0-21.9, adult; R13.10 Dysphagia, unspecified
CPT/HCPCS: 36415; 71010; 74241; 82565; 82962; 83735; 84100; 85025; 86850; 86900; 86923; 88305; 88309; 93005; B4087; C1729; J0690; J1100; J1170; J1650; J1885; J2250; J2270; J2405; J2704; J2710; J3010; J3490; C9113; J1200; J2060; J2370; J7120; S0074